=== PATIENT | male | born 1965 | race Caucasian/White ===

== ENCOUNTER 2021-06-10 09:00 | Outpatient (RCR) | payer OTHER, SELFPAY ==
--- NOTE | 2021-03-25 10:09 | HP.PTEVAL ---
Patient's Visit Information NURIS WYNNE is a 55 year old M referred to Physical Therapy by YOSELIN Nova with a diagnosis of Left Shoulder Pain. Date of Evaluation: 03/25/21 Physical Therapist: Екатерина Cline DPT - Visit Plan Frequency: 2x /Week Duration: 4 Weeks Plan: Focus on scapular strength/stabilization and return to work activities. HEP Given IE: Postural education, IR stretch, scap retractions, ER AROM, Bilateral ER with GTB, table walk away. - Subjective Feb 28, 2021- Patient reports that he works at [employer]- was pulling a part off the belt- felt a pop in his left shoulder- continues working- 2-3 days later he was bruised and then went to the [facility]. Was told he had a torn RTC. Has x-rays but no MRI. The pain is more intermittent- its more painful when he puts it straight out and lifts something or pulls. He was given a #5 restriction at work. Goes back to [facility] 04/09 and thinks they may lift restrictions. Left hand dominate. Worst: 5/10 Agg: move it the wrong way- putting on a jacket. The pain is located in the supraspinatus- no radiating pain- does have some neck stiffness by the end of the day. Always has N/T in his fingers so that is not new- Does have some decreased ups driver strength and finger dexterity. Best: 0/10 Eases: sitting with his arm in neutral. Describes the pain as a sharp- if he stops and returns to neutral the pain goes away. Sleep: if he rolls onto it the pain does wake him up. 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 PMHx: gout Meds: none - Objective Posture: FH, RS- increased guarding of the left UE- can correct posture with verbal cues but does not maintain. Gait: no deviation noted- good arm swing and trunk rotation. Palpation: tender along lateral scapula and supraspinatus. ROM: Finger dexterity: WNL, Wrist: WNL, Elbow: Pain with pronation, WFL, Shoulder: WFL in all planes of flexion/abduction, IR behind the back: belt line, ER: 30 degrees all with pain at end ranges. 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 - Special Tests L Shoulder Empty Can - SS: Positive L Shoulder Belly Press - SupScap: Positive L Shoulder Neer - Impingement: Positive L Shoulder Gupta Louie - Impingement: Positive L Shoulder Biceps Load Test - Labrum: Positive - Balance/Special Test Scores Quick DASH Score: 59.0900 - Goals Goal 1:: Patient will be I with HEP and progression Goal Time Frame: 4-6 Weeks Goal 2:: Patient will maintain proper posture t/o tx session to demo increased scap s/s. Goal Time Frame: 4-6 Weeks Goal 3:: Patient will lift #20 x15 without pain from chair to table Goal Time Frame: 4-6 Weeks Goal 4:: Patient will report no pain with return to work activities. Goal Time Frame: 4-6 Weeks - Rehabilitation Potential Physical Therapy Diagnosis: Patient presents with hypomobility- he has decrease pain free ROM, UE and scapular strength/stabilization and muscular endurance leading to poor posture and increased pain with ADL's. Rehabilitation Potential: Fair - Anticipated Interventions Patient/Client Instruction: Educate patient on: Benefits of Fitness Program Therapeutic Exercise to Include: Strength training, Endurance training, Agility training, Body mechanics, Postural training, Flexibilty training, Neuromotor development, Passive ROM, Active ROM, Dynamic Lumbar Stabilization, Scapular Strength/Stabilization For the Purpose of:: To improve muscle performance and motor function TENS: Yes Cryotherapy (ice pack, ice massage): Yes Thermo therapy (hot pack): Yes Ultrasound (thermal/non thermal): Yes For the Purpose of:: To decrease pain, To improve nutrient delivery to tissue Thank you for the opportunity to evaluate your patient. For Medicare and Medicare HMO plans, please review the plan of care and approve it. It will need to be FAXED BACK to us at [phone] for Medicare purposes. For Medicare only, by signing this I certify the plan of care. Please let me know if there are questions or concerns regarding this plan of care. Physician Signature: Date:
--- NOTE | 2021-04-22 09:20 | HP.PTREVAL_ITS ---
YOSELIN Nova, It has been my pleasure to treat NURIS WYNNE over the last 8 visits for Left Shoulder Pain. Please see the progress note below for an update on the physical therapy plan of care! Subjective: Patient reports that a lot better but not 100%. He feels that he reaches outside his comfort zone he has increased pain. He continues to do ex ercises. Goes back to [facility] tomorrow. They are disputing the claim due to work so he is unsure of his next steps. He is on light duty- but is unsure again of the plan- he has a hearing scheduled but has already had a continuance. Objective/Function: Posture: FH, RS- can correct posture with verbal cues but does not maintain. Gait: no deviation noted- good arm swing and trunk rotation. Palpation: not tender to touch. ROM: Finger dexterity: WNL, Wrist: WNL, Elbow: WFL, Shoulder: WFL in all planes of flexion/abduction, IR behind the back: belt line, ER: 30 degrees- slow to get full ROM but able. Strength: Elbow: flexion: 4+/5, Extn: 4+/5, Shoulder: 4+/5. Scap: fair Plan Plan: Continue PT 2x a week for 4 weeks to progress towards goals. Focus on scapular strength/stabilization and return to work activities. Balance/Gait/Functional tests - Balance/Special Test Scores Quick DASH Score: 29.5450 Goals Goal 1:: Patient will be I with HEP and progression Goal Time Frame: 4-6 Weeks Goal Progress: Progressing Goal 2:: Patient will maintain proper posture t/o tx session to demo increased scap s/s. Goal Time Frame: 4-6 Weeks Goal Progress: Progressing Goal 3:: Patient will lift #20 x15 without pain from chair to table Goal Time Frame: 4-6 Weeks Goal Progress: Progressing Goal 4:: Patient will report no pain with return to work activities. Goal Time Frame: 4-6 Weeks Goal Progress: Progressing Anticipated Interventions Patient/Client Instruction: Educate patient on: Benefits of Fitness Program Therapeutic Exercise to Include: Strength training, Endurance training, Agility training, Body mechanics, Postural training, Flexibilty training, Neuromotor development, Passive ROM, Active ROM, Dynamic Lumbar Stabilization, Scapular Strength/Stabilization For the Purpose of:: To improve muscle performance and motor function TENS: Yes Cryotherapy (ice pack, ice massage): Yes Thermo therapy (hot pack): Yes Ultrasound (thermal/non thermal): Yes For the Purpose of:: To decrease pain, To improve nutrient delivery to tissue Please do not hesitate to contact me at [phone] by phone or if you have questions or concerns regarding this new plan of care! Sincerely, ARLETH KulkarniT
--- NOTE | 2021-05-20 09:58 | HP.PTREVAL ---
YOSELIN Nova, It has been my pleasure to treat NURIS WYNNE over the last 16 visits for Left Shoulder Pain. Please see the progress note below for an update on the physical therapy plan of care! Subjective: Pt is doing private insurance due to denied [facility]. He feels that his shoulder has gotten a lot better. At home he can do 99% and at work he has to be careful due to heavy lifting. He is on light duty at work now with a 5# restriction. When he has to lift away from his body his pain is still a 5-6/10. He has the strength close to his body but not when he lift outward. His L shoulder ROM has improved a lot. 80% improvement in normal day to day things. The repetitiveness at work is also the issue and he is about 70% but has not been working his normal job due to light duty and his normal includes heavy lifting. 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 Objective/Function: Discussed job duties, progress, and continue of care and progressing to HEP. Posture: Pt working on more upright posture. Plan Plan: Continue PT 1x/week for 3 weeks to progress towards goals. Pt to do HEP daily and then seen 1X/ week to work on progressing job like activities about 15-20# lifts with 2 hands with arms semi-outstretched. Continue to work on scapular strength/stabilization and return to work activities. Balance/Gait/Functional tests - Balance/Special Test Scores Quick DASH Score: 15.9075 Goals Goal 1:: Patient will be I with HEP and progression Goal Time Frame: 4-6 Weeks Goal Progress: Progressing Goal 2:: Patient will maintain proper posture t/o tx session to demo increased scap s/s. Goal Time Frame: 4-6 Weeks Goal Progress: Progressing Goal 3:: Patient will lift #25 x15 with two hands from just below shoulder height without pain to a Goal Time Frame: 4-6 Weeks Goal Progress: Progressing Goal 4:: Patient will report no pain with return to work activities. Goal Time Frame: 4-6 Weeks Goal Progress: Progressing Anticipated Interventions Patient/Client Instruction: Educate patient on: Benefits of Fitness Program Therapeutic Exercise to Include: Strength training, Endurance training, Agility training, Body mechanics, Postural training, Flexibilty training, Neuromotor development, Passive ROM, Active ROM, Dynamic Lumbar Stabilization, Scapular Strength/Stabilization For the Purpose of:: To improve muscle performance and motor function TENS: Yes Cryotherapy (ice pack, ice massage): Yes Thermo therapy (hot pack): Yes Ultrasound (thermal/non thermal): Yes For the Purpose of:: To decrease pain, To improve nutrient delivery to tissue Please do not hesitate to contact me at [phone] by phone or if you have questions or concerns regarding this new plan of care! Sincerely, Deann Vargas, MPT
--- NOTE | 2021-06-10 09:14 | HP.PTDCSUM ---
It has been my pleasure to treat NURIS WYNNE referred by YOSELIN Nova, with the diagnosis of Left Shoulder Pain for a total of 19 visit(s). Discharge Date: Please see the following information for a summary of their discharge status. Subjective: Patient reports that he is doing great- his strength is improving and his stamina is just a little lacking. He is able to do all of his exercises at home. He is not having any pain- if he works a 12 hour shift his arm is fatigued. L Sh Pain Intensity (Out of 10): 0 % Improvement: 90 Objective/Function: Posture: good throughout. Gait: no deviation noted- good arm swing and trunk rotation. Palpation: not tender to touch. ROM: Finger dexterity: WNL, Wrist: WNL, Elbow: WFL, Shoulder: WFL in all planes without pain. Strength: Elbow: flexion: 4+/5, Extn: 4+/5, Shoulder: 4+/5. Scap: fair plus Goal 1:: Patient will be I with HEP and progression Goal Progress: Goal Met Goal 2:: Patient will maintain proper posture t/o tx session to demo increased scap s/s. Goal Progress: Goal Met Goal 3:: Patient will lift #25 x15 with two hands from just below shoulder height without pain to a Goal Progress: Goal Met Goal 4:: Patient will report no pain with return to work activities. Goal Progress: Goal Met Plan: Discharge to home exercise program If there are questions or concerns regarding this patient's physical therapy, please feel free to call me at [phone]. Thank you for the referral of this patient. Sincerely, Екатерина Cline, ARLETHT Balance/Gait/Functional tests - Balance/Special Test Scores Quick DASH Score: 10.0000
== END 2021-06-10 09:38 | disposition home or self-care (01) ==
LOC: PT 09:00
PROVIDERS: PCP Family Medicine; Referring Provider Physician Assistant; Visit Provider Physician Assistant
DX: S40.012D Contusion of left shoulder, subsequent encounter (principal); S46.912D Strain of unspecified muscle, fascia and tendon at shoulder and upper arm level, left arm, subsequent encounter; S46.012D Strain of muscle(s) and tendon(s) of the rotator cuff of left shoulder, subsequent encounter; X58.XXXD Exposure to other specified factors, subsequent encounter
CPT/HCPCS: 97110; 97162; 97164; 97530